=== PATIENT | female | born 1980 | race Caucasian/White ===

== ENCOUNTER 2023-01-06 15:41 | Emergency (ER) | payer MEDICAID ==
[~2023-01-06] VITALS: Ht 154.9 cm; Wt 72.1 kg
[2023-01-06 16:46] VITALS: BP 141/99
--- NOTE | 2023-01-06 17:58 | NUR ---
covid, strep, and flu swab collected and sent to lab.
== END 2023-01-06 21:15 | disposition home or self-care (01) ==
LOC: ER 15:48
DX: J02.8 Acute pharyngitis due to other specified organisms (principal); Z20.822 Contact with and (suspected) exposure to COVID-19; Z88.0 Allergy status to penicillin
CPT/HCPCS: 99284; 71045; 87426; 87804 ×2; 87880; C9803; 86403-TC